=== PATIENT | female | born 1945 | race Caucasian/White ===

== ENCOUNTER 2018-02-01 09:28 | Inpatient (IN) | END 2018-02-05 19:00 | DRG 847 ==

== ENCOUNTER 2018-03-21 09:48 | Inpatient (IN) | END 2018-04-03 15:08 | DRG 846 ==

== ENCOUNTER 2018-04-26 10:55 | Inpatient (IN) | END 2018-05-01 16:10 | DRG 847 ==

== ENCOUNTER 2019-03-20 21:15 | Inpatient (IN) | payer MEDICARE, OTHER ==
[~2019-03-20] VITALS: Ht 170.2 cm; Wt 70.1 kg
[~2019-03-20 21:15] MED LIST: ASC500 PO; AZIT500T2 PO; CLON-379 PO; CYAN100080 PO; FER325 PO; HYDR25TA6 PO; LEVA15HF6 INH; ONDA4TAB95 PO; ONDA8TAB83 PO; POTA-57 PO; ZOF8 PO
[2019-03-20] MEDS ORDERED: SOD CHLORIDE 0.9% 0 ML IV ONE (22:21)
[2019-03-20] MEDS ORDERED: POTASSIUM CHLORIDE (SR) 20 MEQ TAB PO STA (22:40)
[2019-03-20] MEDS ORDERED: MAGNESIUM SULFATE 2 GM/50 ML 50 ML IVPB ONE (23:00)
[2019-03-20] MEDS ORDERED: LEVALBUTEROL (NEB) 0.63 MG/3 ML AMP HHN ONE (23:30)
[2019-03-20] MEDS ORDERED: ONDANSETRON 4 MG INJ IV PRN (23:30)
[2019-03-20] MEDS ORDERED: ACETAMINOPHEN 325 MG TAB PO PRN (23:30)
[2019-03-21] MEDS: LEVALBUTEROL (NEB) 1.25 MG/0.5 ML AMP HHN SCH ×4 (00:27→18:06)
[2019-03-21 01:59] VITALS: Ht 170.2 cm; Wt 70.1 kg
[2019-03-21 02:00] VITALS: BP 109/57; PULSE 86; RESP 19
[2019-03-21] MEDS ORDERED: ALBUTEROL/IPRATROPIUM (NEB) 3 ML AMP HHN PRN (03:00)
[2019-03-21] MEDS ORDERED: NACL 0.9% 3 ML SYG IV SCH (03:00)
[2019-03-21] MEDS ORDERED: ONDANSETRON 4 MG INJ IV PRN (03:00)
[2019-03-21] MEDS ORDERED: LEVALBUTEROL (NEB) 1.25 MG/0.5 ML AMP HHN SCH (08:00)
[2019-03-21 08:10] VITALS: BP 132/71; PULSE 84; RESP 20
[2019-03-21] MEDS ORDERED: POTASSIUM CHLORIDE (SR) 20 MEQ TAB PO STA (08:58)
[2019-03-21] MEDS ORDERED: hydrALAzine 20 MG INJ IV PRN (09:00)
[2019-03-21] MEDS: CYANOCOBALAMIN 500 MCG TAB PO SCH ×2 (09:21→20:08)
[2019-03-21] MEDS ORDERED: AMLODIPINE 2.5 MG TAB PO SCH (12:00)
[2019-03-21] MEDS: ONDANSETRON (ODT) 4 MG TAB ODT PRN ×2 (12:25→20:19)
[2019-03-21] MEDS: HYDROCHLOROTHIAZIDE 25 MG TAB PO SCH (13:56)
[2019-03-21 15:00] VITALS: BP 128/74; PULSE 82; RESP 18
[2019-03-21 19:55] VITALS: BP 113/55; PULSE 81; RESP 18
[2019-03-22 02:00] VITALS: BP 110/68; PULSE 83; RESP 18
[2019-03-22] MEDS: LEVALBUTEROL (NEB) 1.25 MG/0.5 ML AMP HHN SCH ×4 (06:16→23:16)
[2019-03-22 07:24] VITALS: BP 112/73; PULSE 83; RESP 18
[2019-03-22] MEDS: CYANOCOBALAMIN 500 MCG TAB PO SCH ×2 (08:49→20:22)
[2019-03-22] MEDS: HYDROCHLOROTHIAZIDE 25 MG TAB PO SCH (08:49)
[2019-03-22] MEDS: ONDANSETRON (ODT) 4 MG TAB ODT PRN (09:23)
[2019-03-22] MEDS ORDERED: LEVALBUTEROL (HFA) 15 GM INHALER INH PRN (12:30)
[2019-03-22] MEDS ORDERED: LEVALBUTEROL (NEB) 1.25 MG/0.5 ML AMP HHN SCH (14:00)
[2019-03-22 14:16] VITALS: BP 116/63; PULSE 88; RESP 16
[2019-03-22] MEDS: ONDANSETRON 4 MG TAB PO PRN (15:21)
[2019-03-22 21:04] VITALS: BP 105/56; PULSE 72; RESP 17
[2019-03-23 01:52] VITALS: BP 109/86; RESP 18
[2019-03-23] MEDS: LEVALBUTEROL (NEB) 1.25 MG/0.5 ML AMP HHN SCH ×4 (05:08→23:00)
[2019-03-23 07:44] VITALS: BP 115/62; PULSE 84; RESP 18
[2019-03-23] MEDS: HYDROCHLOROTHIAZIDE 25 MG TAB PO SCH (08:49)
[2019-03-23] MEDS: CYANOCOBALAMIN 500 MCG TAB PO SCH ×2 (08:49→20:21)
[2019-03-23] MEDS ORDERED: HYDROCHLOROTHIAZIDE 25 MG TAB PO SCH (09:00)
[2019-03-23] MEDS: ONDANSETRON 4 MG TAB PO PRN ×2 (10:25→18:38)
[2019-03-23] MEDS: NYSTATIN 30 GM POWDER BTL TOP SCH ×2 (12:30→20:22)
[2019-03-23 14:00] VITALS: BP 129/66; PULSE 87; RESP 18
[2019-03-23] MEDS ORDERED: POTASSIUM CHLORIDE 20 MEQ POWDER FOR ORAL SOLN PO ONE (14:30)
[2019-03-23 20:00] VITALS: BP 102/50; PULSE 79; RESP 18
[2019-03-23] MEDS ORDERED: NYSTATIN 30 GM POWDER BTL TOP SCH (21:00)
[2019-03-24 02:00] VITALS: BP 104/55; PULSE 84; RESP 18
[2019-03-24] MEDS: LEVALBUTEROL (NEB) 1.25 MG/0.5 ML AMP HHN SCH ×4 (04:55→23:44)
[2019-03-24] MEDS: ACETAMINOPHEN 325 MG TAB PO PRN ×2 (05:37→22:09)
[2019-03-24] MEDS ORDERED: ALTEPLASE (CATHFLO) 2 MG INJ CATHETER PRN (06:00)
[2019-03-24] MEDS ORDERED: IBUPROFEN 400 MG TAB PO PRN (06:30)
[2019-03-24 07:31] VITALS: BP 101/54; PULSE 80; RESP 16
[2019-03-24] MEDS ORDERED: GABAPENTIN 100 MG CAP PO SCH (09:00)
[2019-03-24] MEDS: NYSTATIN 30 GM POWDER BTL TOP SCH ×2 (09:16→20:04)
[2019-03-24] MEDS: CYANOCOBALAMIN 500 MCG TAB PO SCH ×2 (09:17→20:00)
[2019-03-24] MEDS: HYDROCHLOROTHIAZIDE 25 MG TAB PO SCH (09:18)
[2019-03-24] MEDS: ONDANSETRON 4 MG TAB PO PRN ×2 (09:19→20:02)
[2019-03-24 13:34] VITALS: BP 118/82; PULSE 83; RESP 16
[2019-03-24] MEDS: SOD FERRIC GLUC COMPLX 125 MG in SOD CHLORIDE 0.9% 100 ML IVPB SCH (16:11)
[2019-03-24] MEDS: POTASSIUM CHLORIDE 100 ML IVPB SCH ×3 (17:33→22:09)
[2019-03-24 20:57] VITALS: BP 113/56; PULSE 84; RESP 18
[2019-03-25 02:00] VITALS: BP 122/62; PULSE 81; RESP 17
[2019-03-25] MEDS: ACETAMINOPHEN 325 MG TAB PO PRN ×2 (05:03→23:06)
[2019-03-25 08:14] VITALS: BP 126/57; PULSE 63; RESP 16
[2019-03-25] MEDS: LEVALBUTEROL (NEB) 1.25 MG/0.5 ML AMP HHN SCH ×4 (08:33→23:05)
[2019-03-25] MEDS: HYDROCHLOROTHIAZIDE 25 MG TAB PO SCH (09:11)
[2019-03-25] MEDS: CYANOCOBALAMIN 500 MCG TAB PO SCH ×2 (09:11→20:05)
[2019-03-25] MEDS: ONDANSETRON 4 MG TAB PO PRN ×2 (09:12→15:29)
[2019-03-25] MEDS: NYSTATIN 30 GM POWDER BTL TOP SCH ×2 (09:12→20:08)
[2019-03-25] MEDS: SOD FERRIC GLUC COMPLX 125 MG in SOD CHLORIDE 0.9% 100 ML IVPB SCH (13:00)
[2019-03-25 14:07] VITALS: BP 134/65; PULSE 81; RESP 16
[2019-03-25 19:00] VITALS: BP 121/72; PULSE 81; RESP 17
[2019-03-26 02:18] VITALS: BP 95/52; PULSE 73; RESP 18
[2019-03-26 02:42] VITALS: BP 122/57; PULSE 74; RESP 19
[2019-03-26] MEDS: LEVALBUTEROL (NEB) 1.25 MG/0.5 ML AMP HHN SCH ×4 (04:56→17:14)
[2019-03-26 07:30] VITALS: BP 119/56; PULSE 74; RESP 18
[2019-03-26] MEDS: CYANOCOBALAMIN 500 MCG TAB PO SCH (09:24)
[2019-03-26] MEDS: NYSTATIN 30 GM POWDER BTL TOP SCH (09:25)
[2019-03-26] MEDS: ONDANSETRON 4 MG TAB PO PRN (09:25)
[2019-03-26] MEDS: HYDROCHLOROTHIAZIDE 25 MG TAB PO SCH (09:25)
[2019-03-26] MEDS: SOD FERRIC GLUC COMPLX 125 MG in SOD CHLORIDE 0.9% 100 ML IVPB SCH (13:42)
[2019-03-26] MEDS ORDERED: POTASSIUM CHLORIDE (SR) 20 MEQ TAB PO STA (14:09)
[2019-03-26 14:18] VITALS: BP 112/55; PULSE 86; RESP 18
== END 2019-03-26 18:00 | disposition home or self-care (01) | DRG 809 ==
LOC: E/R 21:15 → 2NE 23:29 → OBSVTOIN 03-21 07:52 → MS3 03-21 14:50
PROVIDERS: ADMIT Internal Medicine; ATTEND Family Medicine
PROC: 30233N1 Transfusion of Nonautologous Red Blood Cells into Peripheral Vein, Percutaneous Approach (ICD-10-PCS; principal; 2019-03-21)
DX: D61.818 Other pancytopenia (principal); C83.00 Small cell B-cell lymphoma, unspecified site; N17.9 Acute kidney failure, unspecified; D50.9 Iron deficiency anemia, unspecified; N18.9 Chronic kidney disease, unspecified; E87.6 Hypokalemia; I12.9 Hypertensive chronic kidney disease with stage 1 through stage 4 chronic kidney disease, or unspecified chronic kidney disease; J45.40 Moderate persistent asthma, uncomplicated; R16.2 Hepatomegaly with splenomegaly, not elsewhere classified; F99 Mental disorder, not otherwise specified
CPT/HCPCS: 36415; 36430; 76775; 80048; 80053; 80076; 82270; 82607; 82728; 82746; 83540; 83615; 83735; 84100; 84560; 85014; 85018; 85025; 86850; 86900; 86901; 86920; 87081; 94640; 94664; 96374; 99217; G0378; J2405; J2916; J2997; J3475; J3480; J7040; P9016